=== PATIENT | female | born 1980 | race African-American/Black ===

== ENCOUNTER 2019-01-24 18:08 | Emergency (ER) | payer MEDICAID ==
[~2019-01-24] VITALS: Ht 154.9 cm; Wt 57.0 kg
[2019-01-24] MEDS ORDERED: ACET325C5 PO (18:17)
[2019-01-24] MEDS ORDERED: IBUP-2271 PO (18:17)
[2019-01-24] MEDS ORDERED: AMLO2.5T45 PO (18:17)
[2019-01-24] MEDS ORDERED: UNK ANTIBIOTIC (18:17)
[2019-01-24] MEDS ORDERED: LIDOCAINE HCL/EPINEPHRINE 1%-EPI 1:100,000 20 ML VIAL ONE (18:47)
[2019-01-24] MEDS ORDERED: MORPHINE SULFATE 4 MG/ML CPJ (NOT FOR IM USE) IV STA (19:00)
[2019-01-24] MEDS ORDERED: SODIUM CHLORIDE 0.9% 1,000 ML IV ONE (19:00)
[2019-01-24] MEDS ORDERED: ONDANSETRON HCL 4MG/2ML INJ IV STA (19:00)
[2019-01-24 19:17] LABS: BASOPHILS % 0.4 % (0.0-2.0); EOSINOPHILS % 0.2 % (0.0-5.0); HEMATOCRIT. 35.7 % (36.0-48.0); HEMOGLOBIN. 11.7 g/dL (12.0-16.0); LYMPHOCYTES % 17.1 % (20.0-50.0); MEAN CORPUSCULAR HEMOGLOBIN 28.4 pg (28.0-32.0); MEAN CORPUSCULAR VOLUME 86.4 fL (81.0-99.0); MEAN PLATELET VOLUME 9.6 fl (7.4-10.4); MONOCYTES % 3.9 % (2.0-8.0); NEUTROPHILS % 78.4 % (40.0-76.0); PLATELET 439 x1000/uL (130-400); RED BLOOD CELL COUNT 4.13 mill/uL (4.2-5.4); RED CELL DISTRIBUTION WIDTH 13.7 % (11.6-14.6)
[2019-01-24 19:24] LABS: CHLORIDE 110 mEq/L (98-107)
[2019-01-24 19:26] LABS: PROTHROMBIN TIME 10.2 sec (9.6-11.0)
[2019-01-24 19:44] LABS: HCG SCREEN NEGATIVE
[2019-01-24] MEDS ORDERED: MORPHINE SULFATE 4 MG/ML CPJ (NOT FOR IM USE) IV ONE (21:45)
[2019-01-24] MEDS ORDERED: ONDANSETRON HCL 4MG/2ML INJ IV ONE (21:45)
[2019-01-24 22:30] VITALS: BP 148/100
[2019-01-24] MEDS ORDERED: IOHEXOL-350 100 ML BOTTLE ONE (22:53)
== END 2019-01-24 23:49 | disposition short-term general hospital (02) ==
LOC: ER 18:08
DX: S01.512A Laceration without foreign body of oral cavity, initial encounter (principal); I10 Essential (primary) hypertension; Z79.899 Other long term (current) drug therapy; X58.XXXA Exposure to other specified factors, initial encounter; Y93.89 Activity, other specified; Y92.89 Other specified places as the place of occurrence of the external cause; Y99.8 Other external cause status
CPT/HCPCS: 36415; 41250; 70498; 80053; 84703; 85025; 85610; 96374; 96375; 96376; 99291; J2270; J2405; J3490; J7030; Q9967; Z7610